=== PATIENT | male | born 1970 | race African-American/Black ===

== ENCOUNTER 2018-05-10 11:45 | Day surgery (SDC) | payer OTHER ==
[~2018-05-10] VITALS: Ht 189.2 cm; Wt 102.5 kg
[2018-05-10] MEDS ORDERED: LACTATED RINGERS 1,000 ML IV SCH (12:50)
[2018-05-10] MEDS ORDERED: DEXAMETHASONE 4MG/ML 1ML VIAL ONE (13:03)
[2018-05-10] MEDS ORDERED: BUPIVACAINE HCL/PF 0.5% (5MG/ML) 10ML ONE (13:04)
[2018-05-10] MEDS ORDERED: LIDOCAINE HCL/PF 1% 10 MG/ML 30ML VIAL ONE (13:04)
[2018-05-10] MEDS ORDERED: GENTAMICIN SULF 40MG/ML 2ML VIAL ONE (13:04)
[2018-05-10] MEDS ORDERED: TRIAMCINOLONE ACETONIDE 40MG/ML 1ML VIAL ONE (13:21)
[2018-05-10] MEDS ORDERED: GLYCOPYRROLATE 0.2 MG/ML 2ML VIAL ONE (13:46)
[2018-05-10] MEDS ORDERED: MIDAZOLAM HCL 2 MG/2 ML VIAL ONE (13:46)
[2018-05-10] MEDS ORDERED: SUCCINYLCHOLINE CHLORIDE 200MG/10ML VIAL IV ONE (13:46)
[2018-05-10] MEDS ORDERED: FENTANYL CITRATE/PF 50MCG/ML 2ML VIAL ONE (13:46)
[2018-05-10] MEDS ORDERED: PROPOFOL 200MG/20ML VIAL IV ONE (13:46)
[2018-05-10] MEDS ORDERED: METOCLOPRAMIDE HCL 10MG/2ML VIAL ONE (13:47)
[2018-05-10] MEDS ORDERED: ONDANSETRON HCL 4MG/2ML VIAL ONE (13:47)
[2018-05-10] MEDS ORDERED: CEFAZOLIN SODIUM 1000MG/VIAL ONE (14:20)
[2018-05-10] MEDS ORDERED: SODIUM CHLORIDE 0.9% 1,000 ML IV ONE (15:21)
[2018-05-10] MEDS ORDERED: ONDANSETRON HCL 4MG/2ML VIAL IV PRN (15:30)
[2018-05-10] MEDS ORDERED: MEPERIDINE HCL/PF 25MG/ML CPJ IV PRN (15:30)
[2018-05-10] MEDS ORDERED: HYDROMORPHONE HCL/PF 2MG/ML CPJ IV PRN (15:30)
== END 2018-05-10 17:10 | disposition home or self-care (01) ==
LOC: OR 11:45
PROVIDERS: ATTEND Podiatrist Foot & Ankle Surgery
DX: M21.612 Bunion of left foot (principal); M77.8 Other enthesopathies, not elsewhere classified; E66.3 Overweight; Z88.0 Allergy status to penicillin; Z98.890 Other specified postprocedural states
CPT/HCPCS: 28296; 73630; 88304; 88311; 97116; 97162; J0330; J0690; J1100; J1580; J2250; J2405; J2765; J3010; J3301; J3490; J7120; J2704

== ENCOUNTER 2020-08-10 12:46 | Emergency (ER) | payer OTHER ==
[~2020-08-10] VITALS: Ht 190.5 cm; Wt 102.9 kg
[2020-08-10 12:48] VITALS: BP 132/73
[2020-08-10] MEDS ORDERED: AZITHROMYCIN 500 MG TABLET PO ONE (13:45)
[2020-08-10] MEDS ORDERED: CEFTRIAXONE SODIUM 250 MG/VIAL IM ONE (13:45)
[2020-08-10 15:26] LABS: CLARITY URINE CLEAR (CLEAR); COLOR URINE YELLOW (YELLOW); KETONES URINE NEGATIVE (NEGATIVE); LEUKOCYTE ESTERASE URINE TRACE (NEGATIVE); NITRITE URINE NEGATIVE (NEGATIVE); OCCULT BLOOD URINE NEGATIVE (NEGATIVE); PROTEIN URINE NEGATIVE (NEGATIVE); SPECIFIC GRAVITY URINE 1.019 (1.005-1.030); UROBILINOGEN URINE 0.2 E.U./dL (0.2-1.0)
[2020-08-14 04:08] LABS: NEISSERIA GONORRHOEAE NAA Negative (Negative)
== END 2020-08-10 14:10 | disposition home or self-care (01) ==
LOC: ER 12:46
DX: N34.2 Other urethritis (principal)
CPT/HCPCS: 81003; 87491; 87591; 96372; 99283; J0696